=== PATIENT | female | born 1935 | race Asian ===

== ENCOUNTER 2024-04-20 16:50 | Emergency (ER) | payer MEDICAID ==
[~2024-04-20] VITALS: Ht 162.6 cm; Wt 54.4 kg
[2024-04-20] MEDS ORDERED: ACETAMINOPHEN ES 500 MG TABLET ONE (18:36)
[2024-04-20] MEDS: ACETAMINOPHEN ES 500 MG TABLET PO ONE (18:38)
[2024-04-20] MEDS ORDERED: ACET-2605 PO (19:47)
[2024-04-20] MEDS ORDERED: IBUP-1953 PO (19:47)
[2024-04-20 20:27] VITALS: BP 140/80; TEMP 98.5; O2SAT 98
== END 2024-04-20 20:27 | disposition home or self-care (01) ==
LOC: EDBD 17:24 → ER 17:24
DX: M25.512 Pain in left shoulder (principal); W18.30XA Fall on same level, unspecified, initial encounter; Y93.89 Activity, other specified; Y92.89 Other specified places as the place of occurrence of the external cause; Y99.8 Other external cause status
CPT/HCPCS: 73030-TC